=== PATIENT | female | born 1960 | race Native Hawaiian/Other Pacific Islander ===

== ENCOUNTER 2016-06-08 15:29 | Outpatient (CLI) | payer BC ==
[~2016-06-08 15:29] MED LIST: ADIPEX PO; HYDR25TA60 PO
== END 2016-06-08 16:29 | disposition home or self-care (01) ==
LOC: RAD 15:29
DX: M79.672 Pain in left foot (principal)

== ENCOUNTER 2018-02-12 13:54 | Outpatient (CLI) | payer BC ==
[2018-02-12 14:20] LABS: PLATELET COUNT 348 K/uL (152-353)
[2018-02-12 14:50] LABS: POTASSIUM 4.5 mmol/L (3.6-5.2)
== END 2018-02-12 22:29 | disposition home or self-care (01) ==
LOC: LAB 13:54
PROVIDERS: Nurse Practitioner Family
DX: Z00.00 Encounter for general adult medical examination without abnormal findings (principal); Z79.899 Other long term (current) drug therapy; R53.82 Chronic fatigue, unspecified; F41.9 Anxiety disorder, unspecified
CPT/HCPCS: 80053; 80061; 83036; 84439; 84443; 85027

== ENCOUNTER 2020-06-10 10:34 | Outpatient (CLI) | payer BC | END 2020-06-10 22:11 | disposition home or self-care (01) | LOC: RAD 10:34 | PROVIDERS: ATTEND Nurse Practitioner Family | DX: M19.90 Unspecified osteoarthritis, unspecified site (principal); M54.5 Low back pain ==

== ENCOUNTER 2020-12-02 13:11 | Outpatient (CLI) | payer BC | END 2020-12-02 19:12 | disposition home or self-care (01) | LOC: RAD 13:11 | PROVIDERS: ATTEND Nurse Practitioner Family | DX: U07.1 COVID-19 (principal); R06.02 Shortness of breath ==

== ENCOUNTER 2021-12-13 10:58 | Outpatient (CLI) | payer BC | END 2021-12-13 20:22 | disposition home or self-care (01) | LOC: RESP 10:58 | PROVIDERS: ATTEND Internal Medicine | DX: R01.1 Cardiac murmur, unspecified (principal) ==

== ENCOUNTER 2022-01-17 08:56 | Outpatient (CLI) | payer BC | END 2022-01-17 18:54 | disposition home or self-care (01) | LOC: CT 08:56 | PROVIDERS: ATTEND Nurse Practitioner Family | DX: M54.10 Radiculopathy, site unspecified (principal) ==

== ENCOUNTER 2022-02-07 09:12 | Outpatient (CLI) | payer BC ==
[~2022-02-07] VITALS: Ht 162.6 cm; Wt 96.2 kg
== END 2022-02-07 19:54 | disposition home or self-care (01) ==
LOC: NM 09:12
PROVIDERS: ATTEND Specialist
DX: R06.02 Shortness of breath (principal); R01.1 Cardiac murmur, unspecified; R29.6 Repeated falls; R53.83 Other fatigue; I07.1 Rheumatic tricuspid insufficiency; Z72.0 Tobacco use
CPT/HCPCS: A9500; J2785

== ENCOUNTER 2022-07-27 10:59 | Outpatient (CLI) | payer BC | END 2022-07-27 19:06 | disposition home or self-care (01) | LOC: RAD 10:59 | PROVIDERS: ATTEND Physician Assistant | DX: M54.59 Other low back pain (principal) ==